=== PATIENT | male | born 1965 | race African-American/Black ===

== ENCOUNTER 2016-09-27 07:41 | Emergency (ER) | payer OTHER ==
[~2016-09-27 07:41] MED LIST: ACYC1CAP16 PO; METH750T2 PO; OMEP20TA39 PO; SERT-129 PO; TRAZ100 PO
[2016-09-27 07:43] VITALS: BP 136/69; PULSE 81; RESP 14; TEMP 98.1; O2SAT 97
[2016-09-27 07:50] VITALS: BP 122/77; PULSE 68; RESP 18; O2SAT 97
--- NOTE | 2016-09-27 07:50 | PD ---
HPI Chief Complaint: abdominal pain Time Seen by Provider: 07:50 Travel History International Travel<30 days: No Contact w/Intl Traveler<30days: No Traveled to known affect area: No History of Present Illness HPI 51-year-old male came to the emergency room with history of vague abdominal pain that's been going on for past 2-3 months. [facility]. No history of vomiting or diarrhea. Patient does have some nausea and constipation. His last bowel movement was 2 days ago. He points out to the generalized abdominal area when I asked the location of the pain. He calls it a burning kind of sensation. It comes and goes. He said he is currently in discomfort. No history of blood in his urine or stool. He has been taking [id number] stool softener. He does not remember the name. Vital signs were stable. He said while he was here he also would like to tell about his toothache. It's in the right upper molar. The gum is little swollen and the tooth is chipped. He has not seen a dentist for this yet. [facility] Past Medical History Narrative Medical List of his past medical, surgical, social and family history was reviewed from the nursing note. Arthritis: Yes (BACK) Bipolar Disorder: Yes Anxiety: Yes Depression: Yes Heart Rhythm Problems: No Cardiovascular Problems: Yes High Cholesterol: Yes Congestive Heart Failure: No Diminished Hearing: No GERD: Yes Immunizations Current: Yes Past Surgical History Other Surgery: Yes (LAMINECTOMY L4/L5 1996) Social History Alcohol Use: No Tobacco Use: No Substance Use: Yes (MARIJUANA) Allergies-Medications (Allergen,Severity, Reaction): Coded Allergies: No Known Allergies (Verified , 09/27/16) Comments No known drug allergies. Reported Meds & Prescriptions Reported Meds & Active Scripts Active Protonix (Pantoprazole Sodium) 20 Mg Tab 20 Mg PO DAILY Amoxicillin 500 Mg Cap 500 Mg PO BID 10 Days Miralax Powder (Polyethylene Glycol 3350 Powder) 17 Gm Powd 17 Gm PO DAILY Mix and dissolve one measuring cap-ful (17 grams) in water or juice. Narrative Medication List of his home medications reviewed from the nursing note. Review of Systems Except as stated in HPI: all other systems reviewed are Neg Physical Exam Narrative GENERAL: Awake, alert, no obvious distress SKIN: Warm and dry. HEAD: Atraumatic. Normocephalic. EYES: Pupils equal and round. No scleral icterus. No injection or drainage. ENT: No nasal bleeding or discharge. Mucous membranes pink and moist. Dental caries #1 tooth is cracked and slightly tender to touch. No surrounding edema or abscess noticed. NECK: Trachea midline. No JVD. CARDIOVASCULAR: Regular rate and rhythm. No murmur appreciated. RESPIRATORY: No accessory muscle use. Clear to auscultation. Breath sounds equal bilaterally. GASTROINTESTINAL: Abdomen soft, non-tender, nondistended. Hepatic and splenic margins not palpable. MUSCULOSKELETAL: No obvious deformities. No clubbing. No cyanosis. No edema. NEUROLOGICAL: Awake and alert. No obvious cranial nerve deficits. Motor grossly within normal limits. Normal speech. PSYCHIATRIC: Appropriate mood and affect; insight and judgment normal. Data Data Last Documented VS Orders Complete Blood Count With Diff (09/27/16 07:53) Comprehensive Metabolic Panel (09/27/16 07:53) Urinalysis - C+S If Indicated (09/27/16 07:53) Ct Abd/Pel W/O Iv Contrast (09/27/16 07:53) Iv Access Insert/Monitor (09/27/16 07:53) Ecg Monitoring (09/27/16 07:53) Oximetry (09/27/16 07:53) Sodium Chloride 0.9% Flush (Ns Flush) (09/27/16 08:00) Ketorolac Inj (Toradol Inj) (09/27/16 08:00) Pantoprazole Inj (Protonix Inj) (09/27/16 08:30) Lipase (09/27/16 08:18) Labs MDM Medical Decision Making Medical Screen Exam Complete: Yes Emergency Medical Condition: Yes Medical Record Reviewed: Yes Differential Diagnosis Constipation, diverticulitis, colitis, cracked tooth Narrative Course 8:17 AM patient was given IV Toradol for pain. I've ordered blood test and CAT scan of his abdomen and pelvis. Awaiting for the test results. I will also give him IV Protonix. 9:20 AM blood test and CAT scan reports came back to be within normal limit. And does have some renal insufficiency. I will discharge him home at this point. Procedures EKG Prior to Arrival: No Diagnosis Primary Impression: Constipation Qualified Code: K59.00 - Constipation, unspecified constipation type Additional Impressions: Abdominal pain Qualified Code: R10.84 - Generalized abdominal pain Toothache Renal insufficiency Referrals: Primary Care Physician 3 days Additional Instructions: Please follow-up with your primary care as well as a dentist. Take medication as per the prescription direction. Drink lots of fluid to keep herself hydrated. Drink food with high fiber content. Med/Other Pt SpecificInfo: Prescription(s) given Scripts Pantoprazole (Protonix)20 Mg Tab20 Mg PO DAILY #30 TAB Ref 0 Prov:Marge Mancia MD 09/27/16 Amoxicillin 500 Mg Lty064 Mg PO BID 10 Days Ref 0 Prov:Marge Mancia MD 09/27/16 Polyethylene Glycol 3350 Powder (Miralax Powder)17 Gm Powd17 Gm PO DAILY #1 BOTTLE Ref 0 Mix and dissolve one measuring cap-ful (17 grams) in water or juice. Prov:Marge Mancia MD 09/27/16 Disposition: 01 DISCHARGE HOME Condition: Stable Marge Mancia MD Sep 27, 2016 07:50 Eosinophils # (Auto) 0.0 TH/MM3 Basophils # (Auto) 0.0 TH/MM3 CBC Comment DIFF FINAL Differential Comment Sodium Level 138 MEQ/L Potassium Level 3.8 MEQ/L Chloride Level 105 MEQ/L Carbon Dioxide Level 26.5 MEQ/L Anion Gap 7 MEQ/L Blood Urea Nitrogen 21 MG/DL Creatinine 1.31 MG/DL Estimat Glomerular Filtration 69 ML/MIN Rate Random Glucose 95 MG/DL Calcium Level 8.3 MG/DL Total Bilirubin 0.4 MG/DL Aspartate Amino Transf 37 U/L (AST/SGOT) Alanine Aminotransferase 31 U/L (ALT/SGPT) Alkaline Phosphatase 63 U/L Total Protein 6.7 GM/DL Albumin 3.4 GM/DL Lipase 152 U/L Urine Color YELLOW Urine Turbidity CLEAR Urine pH 6.0 Urine Specific [place] 1.021 Urine Protein NEG mg/dL Urine Glucose (UA) NEG mg/dL Urine Ketones NEG mg/dL Urine Occult Blood NEG Urine Nitrite NEG Urine Bilirubin NEG Urine Urobilinogen 2.0 MG/DL Urine Leukocyte Esterase NEG Urine Mucus FEW /lpf Microscopic Urinalysis Comment CULT NOT INDICATED MDM Medical Decision Making Medical Screen Exam Complete: Yes Emergency Medical Condition: Yes Medical Record Reviewed: Yes Differential Diagnosis Constipation, diverticulitis, colitis, cracked tooth Narrative Course 8:17 AM patient was given IV Toradol for pain. I've ordered blood test and CAT scan of his abdomen and pelvis. Awaiting for the test results. I will also give him IV Protonix. 9:20 AM blood test and CAT scan reports came back to be within normal limit. And does have some renal insufficiency. I will discharge him home at this point. Procedures EKG Prior to Arrival: No Diagnosis Primary Impression: Constipation Qualified Code: K59.00 - Constipation, unspecified constipation type Additional Impressions: Abdominal pain Qualified Code: R10.84 - Generalized abdominal pain Toothache Renal insufficiency Referrals: Primary Care Physician 3 days Additional Instructions: Please follow-up with your primary care as well as a dentist. Take medication as per the prescription direction. Drink lots of fluid to keep herself hydrated. Drink food with high fiber content. Med/Other Pt SpecificInfo: Prescription(s) given Scripts Pantoprazole (Protonix)20 Mg Tab20 Mg PO DAILY #30 TAB Ref 0 Prov:Marge Mancia MD 09/27/16 Amoxicillin 500 Mg Jpv228 Mg PO BID 10 Days Ref 0 Prov:Marge Mancia MD 09/27/16 Polyethylene Glycol 3350 Powder (Miralax Powder)17 Gm Powd17 Gm PO DAILY #1 BOTTLE Ref 0 Mix and dissolve one measuring cap-ful (17 grams) in water or juice. Prov:Marge Mancia MD 09/27/16 Disposition: DISCHARGE HOME Condition: Stable Marge Mancia MD Sep 27, 2016 07:50
[2016-09-27] MEDS ORDERED: KETOROLAC TROMETHAMINE 30 MG/ML (IVP) VIAL IVP ONE (08:00)
[2016-09-27] MEDS ORDERED: SODIUM CHLORIDE 0.9% FLUSH 10 ML FLUSH IV FLUSH PRN (08:00)
[2016-09-27 08:05] VITALS: BP 122/77; PULSE 68; RESP 18; O2SAT 97
[2016-09-27] MEDS ORDERED: PANTOPRAZOLE SODIUM 40 MG VIAL IV PUSH ONE (08:30)
[2016-09-27 08:32] LABS: AUTOMATED NEUTROPHIL # 4.4 TH/MM3 (1.8-7.7); BASOPHIL % 0.4 % (0.0-2.0); EOSINOPHIL % 0.6 % (0.0-4.0); HEMATOCRIT 39.6 % (39.0-51.0); HEMO FLAGS DIFF FINAL; LYMPH % 28.9 % (9.0-44.0); LYMPHOCYTE # 2.1 TH/MM3 (1.0-4.8); MEAN CORPUSCULAR HEMOGLOBIN 28.3 PG (27.0-34.0); MEAN CORPUSCULAR HGB CONC 33.3 % (32.0-36.0); MONO % 8.7 % (0.0-8.0); NEUT % 61.4 % (16.0-70.0); PLATELET COUNT 197 TH/MM3 (150-450); RED BLOOD COUNT 4.66 MIL/MM3 (4.50-5.90); RED CELL DISTRIBUTION WIDTH 14.6 % (11.6-17.2); WHITE BLOOD COUNT 7.2 TH/MM3 (4.0-11.0)
--- NOTE | 2016-09-27 08:47 | RADRPT ---
EXAM DATE/TIME: 09/27/2016 08:03 [facility] COMPARISON: CT ABDOMEN & PELVIS W CONTRAST, November 16, 2014, 14:12. INDICATIONS : Lower left abdomenpain. ORAL CONTRAST: No oral contrast ingested. RADIATION DOSE: 9.96 CTDIvol (mGy) MEDICAL HISTORY : Gastroesophageal reflux disease. SURGICAL HISTORY : None. ENCOUNTER: Initial ACUITY: 2 days PAIN SCALE: 5/10 LOCATION: Left Abdomen TECHNIQUE: Volumetric scanning of the abdomen and pelvis was performed. Using automated exposure control and ad justment of the mA and/or kV according to patient size, radiation dose was kept as low as reasonably achievable to obtain optimal diagnostic quality images. FINDINGS: LOWER LUNGS: The visualized lower lungs are clear. LIVER: Homogeneous density without lesion. There is no dilation of the biliary tree. No calcified gallston es. SPLEEN: Normal size without lesion. PANCREAS: Within normal limits. KIDNEYS: Normal in size and shape. There is no mass, stone, or hydronephrosis. ADRENAL GLANDS: Within normal limits. VASCULAR: There is no aortic aneurysm. BOWEL/MESENTERY: The stomach, small bowel, and colon demonstrate no acute abnormality. There is no free intraperitone al air or fluid. ABDOMINAL WALL: Within normal limits. RETROPERITONEUM: There is no lymphadenopathy. BLADDER: No wall thickening or mass. REPRODUCTIVE: Within normal limits. INGUINAL: There is no lymphadenopathy or hernia. MUSCULOSKELETAL: There are mild degenerative changes throughout the spine. CONCLUSION: 1. No definite abnormality to explain the patient's left lower abdominal pain is identified. Alexx Espinoza MD on September 27, 2016 at 8:29 Board Certified Radiologist. This report was verified electronically.
[2016-09-27 09:10] LABS: ALKALINE PHOSPHATASE 63 U/L (45-117); ALT (GPT) 31 U/L (12-78); ANION GAP 7 MEQ/L (5-15); AST (GOT) 37 U/L (15-37); BICARBONATE 26.5 MEQ/L (21.0-32.0); BLOOD UREA NITROGEN 21 MG/DL (7-18); CHLORIDE 105 MEQ/L (98-107); GLOMERULAR FILTRATION RATE 69 ML/MIN (>89); SODIUM (NA) 138 MEQ/L (136-145); TOTAL BILIRUBIN ADULT 0.4 MG/DL (0.2-1.0)
[2016-09-27 09:12] LABS: BLOOD, URINE NEG (NEG); COMMENT (UR) CULT NOT INDICATED; CULTURE IF INDICATED CULT NOT INDICATED; GLUCOSE,URINE NEG (NEG); KETONE, URINE NEG (NEG); MUCUS URINE FEW /lpf (OCC); NITRITE,URINE NEG (NEG); URINE COLOR YELLOW (YELLW/STRAW)
[2016-09-27 09:17] LABS: POTASSIUM 3.8 MEQ/L (3.5-5.1)
[2016-09-27] MEDS ORDERED: MIRA33504 PO (09:21)
[2016-09-27] MEDS ORDERED: AMOX500C PO (09:21)
[2016-09-27] MEDS ORDERED: PANT20 PO (09:22)
[2016-09-27 09:30] VITALS: BP 122/73
== END 2016-09-27 09:48 | disposition home or self-care (01) ==
LOC: NEPE 07:41
DX: K59.00 Constipation, unspecified (principal); R10.84 Generalized abdominal pain; K08.89 Other specified disorders of teeth and supporting structures; E78.00 Pure hypercholesterolemia, unspecified
CPT/HCPCS: 74176; 80053; 81001; 83690; 85025; 96374; 96375; 99284; C9113; J1885

== ENCOUNTER 2017-04-30 09:25 | Observation (INO) | payer OTHER ==
[2017-04-30] VITALS (8 sets, daily range): BP systolic 117–149; BP diastolic 69–85; PULSE 46–89; RESP 15–18; TEMP 97.3–98.9; O2SAT 96–100
[~2017-04-30] VITALS: Ht 180.3 cm; Wt 106.0 kg
[~2017-04-30 09:25] MED LIST changes: -ACYC1CAP16 PO; +AMOX500C PO; -METH750T2 PO; +MIRA33504 PO; -OMEP20TA39 PO; +PANT20 PO; -SERT-129 PO; -TRAZ100 PO
[2017-04-30] MEDS ORDERED: SODIUM CHLOR 0.9% 1000 ML INJ 1,000 ML IV SCH (09:42)
[2017-04-30] MEDS ORDERED: SODIUM CHLORIDE 0.9% FLUSH 10 ML FLUSH IV FLUSH PRN ×2 (09:45→12:00)
[2017-04-30] MEDS ORDERED: ONDANSETRON HCL 4 MG/2 ML VIAL IVP ONE (09:45)
[2017-04-30] MEDS ORDERED: MORPHINE SULFATE 4 MG/ML INJ IV PUSH ONE (09:45)
[2017-04-30] MEDS ORDERED: FAMOTIDINE 20 MG/2 ML VIAL IV PUSH ONE (09:45)
--- NOTE | 2017-04-30 09:54 | PD ---
HPI Chief Complaint: Abdominal Pain Time Seen by Provider: 09:33 Travel History International Travel<30 days: No Contact w/Intl Traveler<30days: No Traveled to known affect area: No History of Present Illness HPI The patient is a 52-year-old [place] male who presents emergency department for a one-week history of abdominal pain. The patient complains of generalized abdominal pain located in epigastrium and right upper quadrant that radiates to the entire abdomen. He does note mild nausea but denies any vomiting, diarrhea, or constipation. The patient does note decreased appetite over the last week. The patient denies any previous abdominal surgeries and denies any history pancreatitis or biliary colic. He denies any chronic alcohol abuse. The patient states his pain started after he returned home from [place]. The patient called [facility] earlier today who referred him to the emergency department. He denies any dysuria, frequency, urgency, or hematuria. Symptoms are moderate without any alleviating or exacerbating factors. PFSH Past Medical History Arthritis: Yes (BACK) Bipolar Disorder: Yes Anxiety: Yes Depression: Yes Heart Rhythm Problems: No Cardiovascular Problems: Yes High Cholesterol: Yes Congestive Heart Failure: No Diminished Hearing: No GERD: Yes Heparin Induced Thrombocytopen: No Hypertension: No Immunizations Current: Yes Past Surgical History Other Surgery: Yes (LAMINECTOMY L4/L5 1996) Social History Alcohol Use: No Tobacco Use: No Substance Use: Yes (MARIJUANA) Allergies-Medications (Allergen,Severity, Reaction): Coded Allergies: No Known Allergies (Verified , 04/30/17) Reported Meds & Prescriptions Reported Meds & Active Scripts Active Reported Acyclovir 400 Mg Tab 400 Mg PO BID Protonix (Pantoprazole Sodium) 20 Mg Tab 20 Mg PO DAILY Ziprasidone 20 Mg Cap 20 Mg PO BID Trazodone (Trazodone HCl) 50 Mg Tab 50 Mg PO HS Sertraline (Sertraline HCl) 25 Mg Tab 25 Mg PO DAILY Review of Systems Except as stated in HPI: all other systems reviewed are Neg General / Constitutional: No: Fever Cardiovascular: Positive: Chest Pain or Discomfort (epigastric pain and lower chest pain radiating from the abdomen) Respiratory: No: Shortness of Breath Gastrointestinal: Positive: Nausea, Abdominal Pain, Loss of Appetite, No: Vomiting, Diarrhea Genitourinary: No: Urgency, Frequency, Dysuria, Hematuria Physical Exam Narrative GENERAL: Awake, alert, pleasant 52-year-old male who appears his stated age and is in no acute respiratory distress. SKIN: Focused skin assessment warm/dry. HEAD: Atraumatic. Normocephalic. EYES: Pupils equal and round. No scleral icterus. No injection or drainage. ENT: No nasal bleeding or discharge. Mucous membranes pink and moist. NECK: Trachea midline. No JVD. CARDIOVASCULAR: Regular rate and rhythm. No murmur appreciated. RESPIRATORY: No accessory muscle use. Clear to auscultation. Breath sounds equal bilaterally. GASTROINTESTINAL: Abdomen soft, mild diffuse tenderness but no rebound tenderness, guarding, rigidity. Negative Trammell's. Negative McBurney's. Back: No CVA tenderness. MUSCULOSKELETAL: No obvious deformities. No clubbing. No cyanosis. No edema. NEUROLOGICAL: Awake and alert. No obvious cranial nerve deficits. Motor grossly within normal limits. Normal speech. PSYCHIATRIC: Appropriate mood and affect; insight and judgment normal. Data Data Last Documented VS Vital Signs Date Time Temp Pulse Resp B/P (MAP) Pulse Ox O2 Delivery O2 Flow Rate FiO2 04/30/17 09:59 98.3 18 100 Room Air 04/30/17 09:57 53 Orders Orders Complete Blood Count With Diff (04/30/17 09:42) Comprehensive Metabolic Panel (04/30/17 09:42) Lipase (04/30/17 09:42) Lactic Acid (04/30/17 09:42) Urinalysis - C+S If Indicated (04/30/17 09:42) Ct Abd/Pel W/O Iv Contrast (04/30/17 09:42) Iv Access Insert/Monitor (04/30/17 09:42) Ecg Monitoring (04/30/17 09:42) Oximetry (04/30/17 09:42) Morphine Inj (Morphine Inj) (04/30/17 09:45) Ondansetron Inj (Zofran Inj) (04/30/17 09:45) Sodium Chlor 0.9% 1000 Ml Inj (Ns 1000 M (04/30/17 09:42) Sodium Chloride 0.9% Flush (Ns Flush) (04/30/17 09:45) Electrocardiogram (04/30/17 09:42) Famotidine Inj (Pepcid Inj) (04/30/17 09:45) Admit Order (Ed Use Only) (04/30/17 ) Vital Signs (Adult) Q4H (04/30/17 11:52) Diet Npo (04/30/17 Lunch) Activity Oob With Assistance (04/30/17 11:52) Labs Laboratory Tests Test 04/30/17 09:55 04/30/17 10:09 White Blood Count 7.5 TH/MM3 Red Blood Count 4.89 MIL/MM3 Hemoglobin 14.1 GM/DL Hematocrit 42.1 % Mean Corpuscular Volume 86.2 FL Mean Corpuscular Hemoglobin 28.8 PG Mean Corpuscular Hemoglobin Concent 33.4 % Red Cell Distribution Width 14.4 % Platelet Count 201 TH/MM3 Mean Platelet Volume 8.7 FL Neutrophils (%) (Auto) 75.4 % Lymphocytes (%) (Auto) 17.0 % Monocytes (%) (Auto) 7.0 % Eosinophils (%) (Auto) 0.3 % Basophils (%) (Auto) 0.3 % Neutrophils # (Auto) 5.6 TH/MM3 Lymphocytes # (Auto) 1.3 TH/MM3 Monocytes # (Auto) 0.5 TH/MM3 Eosinophils # (Auto) 0.0 TH/MM3 Basophils # (Auto) 0.0 TH/MM3 CBC Comment DIFF FINAL Differential Comment Blood Urea Nitrogen 14 MG/DL Creatinine 1.08 MG/DL Random Glucose 116 MG/DL Total Protein 7.1 GM/DL Albumin 3.4 GM/DL Calcium Level 8.9 MG/DL Alkaline Phosphatase 60 U/L Aspartate Amino Transf (AST/SGOT) 29 U/L Alanine Aminotransferase (ALT/SGPT) 23 U/L Total Bilirubin 0.4 MG/DL Sodium Level 139 MEQ/L Potassium Level 4.4 MEQ/L Chloride Level 107 MEQ/L Carbon Dioxide Level 23.1 MEQ/L Anion Gap 9 MEQ/L Estimat Glomerular Filtration Rate 86 ML/MIN Lactic Acid Level 1.1 mmol/L Lipase 88 U/L Urine Color YELLOW Urine Turbidity CLEAR Urine pH 6.0 Urine Specific [place] 1.015 Urine Protein NEG mg/dL Urine Glucose (UA) NEG mg/dL Urine Ketones NEG mg/dL Urine Occult Blood NEG Urine Nitrite NEG Urine Bilirubin NEG Urine Urobilinogen LESS THAN 2.0 MG/DL Urine Leukocyte Esterase NEG Urine RBC LESS THAN 1 /hpf Urine WBC LESS THAN 1 /hpf Microscopic Urinalysis Comment CULT NOT INDICATED MDM Medical Decision Making Medical Screen Exam Complete: Yes Emergency Medical Condition: Yes Medical Record Reviewed: Yes Interpretation(s) EKG reveals sinus bradycardia with a heart rate of 49. No ischemic changes noted. Laboratory Tests Test 04/30/17 09:55 04/30/17 10:09 White Blood Count 7.5 TH/MM3 Red Blood Count 4.89 MIL/MM3 Hemoglobin 14.1 GM/DL Hematocrit 42.1 % Mean Corpuscular Volume 86.2 FL Mean Corpuscular Hemoglobin 28.8 PG Mean Corpuscular Hemoglobin Concent 33.4 % Red Cell Distribution Width 14.4 % Platelet Count 201 TH/MM3 Mean Platelet Volume 8.7 FL Neutrophils (%) (Auto) 75.4 % Lymphocytes (%) (Auto) 17.0 % Monocytes (%) (Auto) 7.0 % Eosinophils (%) (Auto) 0.3 % Basophils (%) (Auto) 0.3 % Neutrophils # (Auto) 5.6 TH/MM3 Lymphocytes # (Auto) 1.3 TH/MM3 Monocytes # (Auto) 0.5 TH/MM3 Eosinophils # (Auto) 0.0 TH/MM3 Basophils # (Auto) 0.0 TH/MM3 CBC Comment DIFF FINAL Differential Comment Blood Urea Nitrogen 14 MG/DL Creatinine 1.08 MG/DL Random Glucose 116 MG/DL Total Protein 7.1 GM/DL Albumin 3.4 GM/DL Calcium Level 8.9 MG/DL Alkaline Phosphatase 60 U/L Aspartate Amino Transf (AST/SGOT) 29 U/L Alanine Aminotransferase (ALT/SGPT) 23 U/L Total Bilirubin 0.4 MG/DL Sodium Level 139 MEQ/L Potassium Level 4.4 MEQ/L Chloride Level 107 MEQ/L Carbon Dioxide Level 23.1 MEQ/L Anion Gap 9 MEQ/L Estimat Glomerular Filtration Rate 86 ML/MIN Lactic Acid Level 1.1 mmol/L Lipase 88 U/L Urine Color YELLOW Urine Turbidity CLEAR Urine pH 6.0 Urine Specific [place] 1.015 Urine Protein NEG mg/dL Urine Glucose (UA) NEG mg/dL Urine Ketones NEG mg/dL Urine Occult Blood NEG Urine Nitrite NEG Urine Bilirubin NEG Urine Urobilinogen LESS THAN 2.0 MG/DL Urine Leukocyte Esterase NEG Urine RBC LESS THAN 1 /hpf Urine WBC LESS THAN 1 /hpf Microscopic Urinalysis Comment CULT NOT INDICATED Differential Diagnosis Differential diagnosis includes cholecystitis, biliary colic, pancreatitis, pancreatic cancer, atypical appendicitis, nephrolithiasis, hydronephrosis, pyelonephritis, duodenitis, peptic ulcer disease. Narrative Course IV was established, labs are drawn and sent, and the patient was placed on cardiac telemetry monitoring and continuous pulse oximetry monitoring. The patient was administered morphine, Zofran, and IV fluids. EKG was ordered and interpreted. UA was sent to lab. The patient's white count and lactic acid are unremarkable. However, CT reveals an abnormal 10 cm dilation of the distal duodenum, proximal jejunum, unsure if this is related to aperistalsis versus another etiology. Patient has had abdominal pain for 7 days, with decreased appetite, may benefit from small bowel follow-through versus repeat CT with oral contrast versus endoscopy. Therefore, the patient will be 23 hour observation to the on-call medical service. Physician Communication Physician Communication I discussed the patient with Dr. Bui who agrees with 23 hour observation. Diagnosis Primary Impression: Abdominal pain Qualified Codes: R10.11 - Right upper quadrant pain Admitting Information Admitting Physician Requests: Observation Condition: Stable Sachin Valero MD Apr 30, 2017 09:54
[2017-04-30] MEDS ORDERED: PANT20 PO (09:56)
[2017-04-30] MEDS ORDERED: TRAZ50TA12 PO (09:56)
[2017-04-30] MEDS ORDERED: SERT25TA83 PO (09:56)
[2017-04-30] MEDS ORDERED: ZIPR20CA13 PO (09:56)
[2017-04-30] MEDS ORDERED: ACYC400T PO (09:56)
[2017-04-30 10:28] LABS: AUTOMATED NEUTROPHIL # 5.6 TH/MM3 (1.8-7.7); BASOPHIL % 0.3 % (0.0-2.0); EOSINOPHIL % 0.3 % (0.0-4.0); HEMATOCRIT 42.1 % (39.0-51.0); HEMO FLAGS DIFF FINAL; LYMPHOCYTE # 1.3 TH/MM3 (1.0-4.8); MEAN CELL VOLUME 86.2 FL (80.0-100.0); MEAN CORPUSCULAR HEMOGLOBIN 28.8 PG (27.0-34.0); MEAN CORPUSCULAR HGB CONC 33.4 % (32.0-36.0); NEUT % 75.4 % (16.0-70.0); PLATELET COUNT 201 TH/MM3 (150-450); RED BLOOD COUNT 4.89 MIL/MM3 (4.50-5.90); RED CELL DISTRIBUTION WIDTH 14.4 % (11.6-17.2); WHITE BLOOD COUNT 7.5 TH/MM3 (4.0-11.0)
[2017-04-30 10:48] LABS: BLOOD, URINE NEG (NEG); GLUCOSE,URINE NEG (NEG); KETONE, URINE NEG (NEG); NITRITE,URINE NEG (NEG); URINE COLOR YELLOW (YELLW/STRAW)
[2017-04-30 10:49] LABS: ALT (GPT) 23 U/L (12-78)
[2017-04-30 10:50] LABS: COMMENT (UR) CULT NOT INDICATED; CULTURE IF INDICATED CULT NOT INDICATED
[2017-04-30 10:52] LABS: ALKALINE PHOSPHATASE 60 U/L (45-117); ANION GAP 9 MEQ/L (5-15); AST (GOT) 29 U/L (15-37); BICARBONATE 23.1 MEQ/L (21.0-32.0); BLOOD UREA NITROGEN 14 MG/DL (7-18); CHLORIDE 107 MEQ/L (98-107); GLOMERULAR FILTRATION RATE 86 ML/MIN (>89); SODIUM (NA) 139 MEQ/L (136-145); TOTAL BILIRUBIN ADULT 0.4 MG/DL (0.2-1.0)
[2017-04-30 10:58] LABS: POTASSIUM 4.4 MEQ/L (3.5-5.1)
--- NOTE | 2017-04-30 11:02 | RADRPT ---
EXAM DATE/TIME: 04/30/2017 10:30 [facility] COMPARISON: CT ABDOMEN & PELVIS W CONTRAST, November 16, 2014, 14:12. CT ABDOMEN & PELVIS W/O CONTRAST, September 27 7, 8:03. INDICATIONS : Right sided abdominal pain for seven days. ORAL CONTRAST: No oral contrast ingested. RADIATION DOSE: 13.54 CTDIvol (mGy) MEDICAL HISTORY : Cardiovascular disease. SURGICAL HISTORY : None. ENCOUNTER: Initial ACUITY: 1 day PAIN SCALE: 8/10 LOCATION: Right TECHNIQUE: Volumetric scanning of the abdomen and pelvis was performed. Using automated exposure control and ad justment of the mA and/or kV according to patient size, radiation dose was kept as low as reasonably achievable to obtain optimal diagnostic quality images. DICOM format image data is available electro nically for review and comparison. FINDINGS: LOWER LUNGS: Minimal atelectasis in the anterior lung base. LIVER: Homogeneous density without lesion. There is no dilation of the biliary tree. No calcified gallston es. SPLEEN: Normal size without lesion. PANCREAS: Within normal limits. KIDNEYS: Normal in size and shape. There is no mass, stone, or hydronephrosis. ADRENAL GLANDS: Within normal limits. VASCULAR: There is no aortic aneurysm. BOWEL/MESENTERY: Appendix is visualized and normal in appearance. There is an air filled slightly prominent 10 cm loop of very proximal jejunum at the junction of the duodenum. Bowel otherwise appears unremarkable witho ut evidence for free air or pneumatosis. No significant free fluid or drainable fluid collection. ABDOMINAL WALL: Within normal limits. RETROPERITONEUM: There is no lymphadenopathy. BLADDER: No wall thickening or mass. REPRODUCTIVE: Within normal limits. INGUINAL: There is no lymphadenopathy or hernia. MUSCULOSKELETAL: Degenerative spondylosis of the lower lumbar spine most prominent at L4-5 and L5-S1. CONCLUSION: 1. Focal 10 cm loop of slightly prominent air-filled proximal jejunum at the junction of the duodenum . This finding is nonspecific and likely reflects transient aperistalsis in this segment of bowel. En teritis or developing ileus are felt to be unlikely although cannot be entirely excluded. 2. Normal appendix. Austin Victoria MD on April 30, 2017 at 10:52 Board Certified Radiologist. This report was verified electronically.
[2017-04-30] MEDS ORDERED: DIATRIZOATE MEGLUM/DIATRIZOATE SOD 120 ML BTL (for RAD DIAG) PO ONE (11:55)
[2017-04-30] MEDS ORDERED: ONDANSETRON HCL 4 MG/2 ML VIAL IVP PRN (12:00)
[2017-04-30] MEDS ORDERED: NALOXONE HCL 0.4 MG/ML AMP IV PUSH PRN (12:00)
[2017-04-30] MEDS: SODIUM CHLOR 0.9% 1000 ML INJ 1,000 ML IV SCH ×2 (12:26→23:29)
--- NOTE | 2017-04-30 12:31 | HHI.HP ---
[facility] Admission Diagnosis abdominal pain NOS Diagnoses: Chief Complaint: Nausea, abdominal pain Travel History International Travel<30 Days: No Contact w/Intl Traveler <30 Da: No Traveled to Known Affected Are: No History of Present Illness 52-year-old male with a history of depression, bipolar disorder, GERD who presents with a one-week history of constant sharp epigastric abdominal pain, together with sharp constant right groin pain. He also reports a three-day history of left lower chest tightness, which is not changed with exertion. He also reports nausea for the past 3 days without vomiting. Reports decreased appetite over the past few days. He does report chills over the past few days, however no measured fevers. Denies any diarrhea. He does report chronic constipation, although says he is not constipated at this time. Review of Systems Except as stated in HPI: all other systems reviewed are Neg Past Family Social History Past Medical History Depression Bipolar GERD Herpes Past Surgical History History of back surgery in the 1980s. Reported Medications Reported Meds & Active Scripts Active Reported Acyclovir 400 Mg Tab 400 Mg PO BID Protonix (Pantoprazole Sodium) 20 Mg Tab 20 Mg PO DAILY Ziprasidone 20 Mg Cap 20 Mg PO BID Trazodone (Trazodone HCl) 50 Mg Tab 50 Mg PO HS Sertraline (Sertraline HCl) 25 Mg Tab 25 Mg PO DAILY Allergies: Coded Allergies: No Known Allergies (Verified , 04/30/17) Family History Father suddenly reportedly from heart attack in his 30s. Mother reportedly healthy. Social History Nonsmoker. Nondrinker. Reports twice weekly marijuana use. Physical Exam Vital Signs Vital Signs Date Time Temp Pulse Resp B/P (MAP) Pulse Ox O2 Delivery O2 Flow Rate FiO2 04/30/17 09:59 98.3 18 100 Room Air 04/30/17 09:57 53 18 136/78 (97) 99 Room Air 04/30/17 09:27 97.8 89 15 139/80 (99) 96 Physical Exam GENERAL: This is a well-nourished, well-developed patient, in no apparent distress. Alert and oriented 3. SKIN: No rashes, ecchymoses or lesions. Cool and dry. HEAD: Atraumatic. Normocephalic. No temporal or scalp tenderness. EYES: Pupils equal round and reactive. Extraocular motions intact. No scleral icterus. No injection or drainage. ENT: Nose without bleeding, purulent drainage or septal hematoma. Throat without erythema, tonsillar hypertrophy or exudate. Uvula midline. Airway patent. NECK: Trachea midline. No JVD or lymphadenopathy. Supple, nontender, no meningeal signs. CARDIOVASCULAR: Regular rate and rhythm without murmurs, gallops, or rubs. RESPIRATORY: Clear to auscultation. Breath sounds equal bilaterally. No wheezes , rales, or rhonchi. GASTROINTESTINAL: Abdomen with mild tenderness to moderate palpation over the epigastrium.. No hepato-splenomegaly, or palpable masses. No guarding. No rebound. No right lower quadrant tenderness. Hypoactive bowel sounds. MUSCULOSKELETAL: Extremities without clubbing, cyanosis, or edema. No joint tenderness, effusion, or edema noted. No calf tenderness. Negative Homans sign bilaterally. NEUROLOGICAL: Awake and alert. Cranial nerves II through XII intact. Motor and sensory grossly within normal limits. Five out of 5 muscle strength in all muscle groups. Normal speech. Laboratory Laboratory Tests Test 04/30/17 09:55 04/30/17 10:09 White Blood Count 7.5 Red Blood Count 4.89 Hemoglobin 14.1 Hematocrit 42.1 Mean Corpuscular Volume 86.2 Mean Corpuscular Hemoglobin 28.8 Mean Corpuscular Hemoglobin Concent 33.4 Red Cell Distribution Width 14.4 Platelet Count 201 Mean Platelet Volume 8.7 Neutrophils (%) (Auto) 75.4 Lymphocytes (%) (Auto) 17.0 Monocytes (%) (Auto) 7.0 Eosinophils (%) (Auto) 0.3 Basophils (%) (Auto) 0.3 Neutrophils # (Auto) 5.6 Lymphocytes # (Auto) 1.3 Monocytes # (Auto) 0.5 Eosinophils # (Auto) 0.0 Basophils # (Auto) 0.0 CBC Comment DIFF FINAL Differential Comment Blood Urea Nitrogen 14 Creatinine 1.08 Random Glucose 116 Total Protein 7.1 Albumin 3.4 Calcium Level 8.9 Alkaline Phosphatase 60 Aspartate Amino Transf (AST/SGOT) 29 Alanine Aminotransferase (ALT/SGPT) 23 Total Bilirubin 0.4 Sodium Level 139 Potassium Level 4.4 Chloride Level 107 Carbon Dioxide Level 23.1 Anion Gap 9 Estimat Glomerular Filtration Rate 86 Lactic Acid Level 1.1 Lipase 88 Urine Color YELLOW Urine Turbidity CLEAR Urine pH 6.0 Urine Specific [place] 1.015 Urine Protein NEG Urine Glucose (UA) NEG Urine Ketones NEG Urine Occult Blood NEG Urine Nitrite NEG Urine Bilirubin NEG Urine Urobilinogen LESS THAN 2.0 Urine Leukocyte Esterase NEG Urine RBC LESS THAN 1 Urine WBC LESS THAN 1 Microscopic Urinalysis Comment CULT NOT INDICATED Result Diagram: 04/30/1795404/30/17954 Imaging Last Impressions Abdomen/Pelvis CT 04/30/17941 Signed Impressions: Service Date/Time: Sunday, April 30, 2017 10:30 - CONCLUSION: 1. Focal 10 cm loop of slightly prominent air-filled proximal jejunum at the junction of the duodenum. This finding is nonspecific and likely reflects transient aperistalsis in this segment of bowel. Enteritis or developing ileus are felt to be unlikely although cannot be entirely excluded. 2. Normal appendix. MD Ronin Sears VTE Risk Assessment Caprini VTE Risk Assessment: No/Low Risk (score <= 1) Caprini Risk Assessment Model Point Value = 1 Point Value = 2 Point Value = 3 Point Value = 5 Age 41-60 Minor surgery BMI > 25 kg/m2 Swollen legs Varicose veins or History of unexplained or recurrent spontaneous Oral contraceptives or hormone replacement Sepsis (< 1 month) Serious lung disease, including pneumonia (< 1 month) Abnormal pulmonary function Acute myocardial infarction Congestive heart failure (< 1 month) History of inflammatory bowel disease Medical patient at bed rest Age 61-74 Arthroscopic surgery Major open surgery (> 45 min) Laparoscopic surgery (> 45 min) Malignancy Confined to bed (> 72 hours) Immobilizing plaster cast Central venous access Age >= 75 History of VTE Family history of VTE Factor V Leiden Prothrombin [id number] Lupus anticoagulant Anticardiolipin antibodies Elevated serum homocysteine Heparin-induced thrombocytopenia Other congenital or acquired thrombophilia Stroke (< 1 month) Elective arthroplasty Hip, pelvis, or leg fracture Acute spinal cord injury (< 1 month) Prophylaxis Regimen Total Risk Factor Score Risk Level Prophylaxis Regimen 0-1 Low Early ambulation 2 Moderate Order ONE of the following: *Sequential Compression Device (SCD) *Heparin 5000 units SQ BID 3-4 Higher Order ONE of the following medications: *Heparin 5000 units SQ TID *Enoxaparin/Lovenox 40 mg SQ daily (WT < 150 kg, CrCl > 30 mL/min) *Enoxaparin/Lovenox 30 mg SQ daily (WT < 150 kg, CrCl > 10-29 mL/min) *Enoxaparin/Lovenox 30 mg SQ BID (WT < 150 kg, CrCl > 30 mL/min) AND/OR *Sequential Compression Device (SCD) 5 or more Highest Order ONE of the following medications: *Heparin 5000 units SQ TID (Preferred with Epidurals) *Enoxaparin/Lovenox 40 mg SQ daily (WT < 150 kg, CrCl > 30 mL/min) *Enoxaparin/Lovenox 30 mg SQ daily (WT < 150 kg, CrCl > 10-29 mL/min) *Enoxaparin/Lovenox 30 mg SQ BID (WT < 150 kg, CrCl > 30 mL/min) AND *Sequential Compression Device (SCD) Assessment and Plan Assessment and Plan //Nausea. Possible small bowel obstruction on CT abdomen. Personally visualized CT abdomen with what appears to be a peristalsis of the duodenum. -Renal function, LFTs appear acceptable. Lactate 1.1. -Urine drug screen pending. Nausea could be secondary to marijuana. Patient nothing by mouth. Start IV fluids. Consult gastroenterology. //Left-sided chest pressure 3 day history of this. This is likely referred from abdominal pain. -Patient had low risk myocardial perfusion scan in September 2015. Troponin 1, EKG ordered. Given time course, if troponin negative, this is unlikely cardiac in nature. //Right sided groin pain. -No indication of hernia. Possible hip pain. Normal appendix on CT. No gee right lower quadrant tenderness to palpation. //Depression //Bipolar. Continue home medications. //Marijuana use. Cessation counseling provided. //Prophylaxis. SCDs. Discussed Condition With Patient, brother at bedside, ER physician. Archie Bui MD Apr 30, 2017 12:31
--- NOTE | 2017-04-30 14:46 | PD.CONS ---
HPI History of Present Illness This is a 52 year old male with hx GERD, bipolar disorder who presented with abdominal pain that started 1 week ago. THe pain is in the epigastric area and lower quadrants as well, worsening. THe pains are sharp. No aggravating or relieving factors. No diarrhea, nausea or vomiting, blood in stool. He admits burping more than usual the last few days. Admits chills and "sweats." He takes pantoprazole for GERD. Never had EGD. [facility] 2 years ago [facility], no abnormal findings. Had BM yesterday, he is feeling constipated. He has intermittent constipation. PFSH Past Medical History Depression Bipolar GERD Herpes Past Surgical History History of back surgery in the 1980s. Coded Allergies: No Known Allergies (Verified , 04/30/17) Family History Father suddenly reportedly from heart attack in his 30s. Mother reportedly healthy. Social History Nonsmoker. Nondrinker. Reports twice weekly marijuana use. Review of Systems Constitutional: COMPLAINS OF: Chills Eyes: DENIES: Blurred vision Ears, nose, mouth, throat: DENIES: Hearing loss Respiratory: COMPLAINS OF: Shortness of breath, DENIES: Hemoptysis Cardiovascular: COMPLAINS OF: Chest pain Gastrointestinal: COMPLAINS OF: Abdominal pain, Constipation, Nausea, Vomiting , DENIES: Black stools, Bloody stools, Diarrhea Genitourinary: DENIES: Hematuria Musculoskeletal: DENIES: Joint Swelling Integumentary: DENIES: Jaundice Neurologic: DENIES: Abnormal gait Psychiatric: DENIES: Confusion GI Exam Vitals I&O Vital Signs Date Time Temp Pulse Resp B/P (MAP) Pulse Ox O2 Delivery O2 Flow Rate FiO2 04/30/17 12:50 46 16 149/85 (106) 100 Room Air 04/30/17 12:49 18 04/30/17 09:59 98.3 18 100 Room Air 04/30/17 09:57 53 18 136/78 (97) 99 Room Air 04/30/17 09:27 97.8 89 15 139/80 (99) 96 I/O 04/29/17 04/29/17 04/29/17 04/30/17 04/30/17 04/30/17 07:00 15:00 23:00 07:00 15:00 23:00 Intake Total 1000 ml Balance 1000 ml Intake IV Total 1000 ml Imaging Last Impressions Abdomen/Pelvis CT 04/30/17 0942 Signed Impressions: Service Date/Time: Sunday, April 30, 2017 10:30 - CONCLUSION: 1. Focal 10 cm loop of slightly prominent air-filled proximal jejunum at the junction of the duodenum. This finding is nonspecific and likely reflects transient aperistalsis in this segment of bowel. Enteritis or developing ileus are felt to be unlikely although cannot be entirely excluded. 2. Normal appendix. Austin Victoria MD Laboratory Test 04/30/17 09:55 04/30/17 10:09 White Blood Count 7.5 TH/MM3 Red Blood Count 4.89 MIL/MM3 Hemoglobin 14.1 GM/DL Hematocrit 42.1 % Mean Corpuscular Volume 86.2 FL Mean Corpuscular Hemoglobin 28.8 PG Mean Corpuscular Hemoglobin Concent 33.4 % Red Cell Distribution Width 14.4 % Platelet Count 201 TH/MM3 Mean Platelet Volume 8.7 FL Neutrophils (%) (Auto) 75.4 % Lymphocytes (%) (Auto) 17.0 % Monocytes (%) (Auto) 7.0 % Eosinophils (%) (Auto) 0.3 % Basophils (%) (Auto) 0.3 % Neutrophils # (Auto) 5.6 TH/MM3 Lymphocytes # (Auto) 1.3 TH/MM3 Monocytes # (Auto) 0.5 TH/MM3 Eosinophils # (Auto) 0.0 TH/MM3 Basophils # (Auto) 0.0 TH/MM3 CBC Comment DIFF FINAL Differential Comment Blood Urea Nitrogen 14 MG/DL Creatinine 1.08 MG/DL Random Glucose 116 MG/DL Total Protein 7.1 GM/DL Albumin 3.4 GM/DL Calcium Level 8.9 MG/DL Alkaline Phosphatase 60 U/L Aspartate Amino Transf (AST/SGOT) 29 U/L Alanine Aminotransferase (ALT/SGPT) 23 U/L Total Bilirubin 0.4 MG/DL Sodium Level 139 MEQ/L Potassium Level 4.4 MEQ/L Chloride Level 107 MEQ/L Carbon Dioxide Level 23.1 MEQ/L Anion Gap 9 MEQ/L Estimat Glomerular Filtration Rate 86 ML/MIN Lactic Acid Level 1.1 mmol/L Lipase 88 U/L Urine Color YELLOW Urine Turbidity CLEAR Urine pH 6.0 Urine Specific [place] 1.015 Urine Protein NEG mg/dL Urine Glucose (UA) NEG mg/dL Urine Ketones NEG mg/dL Urine Occult Blood NEG Urine Nitrite NEG Urine Bilirubin NEG Urine Urobilinogen LESS THAN 2.0 MG/DL Urine Leukocyte Esterase NEG Urine RBC LESS THAN 1 /hpf Urine WBC LESS THAN 1 /hpf Microscopic Urinalysis Comment CULT NOT INDICATED Urine Opiates Screen NEG Urine Barbiturates Screen NEG Urine Amphetamines Screen NEG Urine Benzodiazepines Screen NEG Urine Cocaine Screen NEG Urine Cannabinoids Screen POS Physical Examination HEENT: PERRL; normocephalic; atraumatic; no jaundice. CHEST: CTA CARDIAC: RRR ABDOMEN: Soft, nondistended, diffuse TTP; no hepatosplenomegaly; bowel sounds are present in all four quadrants. EXTREMITIES: No clubbing, cyanosis, or edema. SKIN: Normal; no rash; no jaundice. PATIENT ACCOUNTING REPRESENTATIVE: No focal deficits; alert and oriented times three. Ibis Velez [facility] Apr 30, 2017 14:46
[2017-04-30] MEDS ORDERED: POLYETHYLENE GLYCOL 17 GM PKG PO ONE (15:15)
--- NOTE | 2017-04-30 17:59 | EKG ---
Date Performed: 04/30/2017 Time Performed: 10:16:02 PTAGE: 52 years EKG: SINUS BRADYCARDIA BORDERLINE ECG Compared to prior tracing no significant change PREVIOUS TRACING : 09/16/2015 21.35 DOCTOR: Audi Espinoza Interpretating Date/Time 04/30/2017 17:59:04
[2017-04-30] MEDS: ZIPRASIDONE HCL 20 MG CAP PO SCH (20:35)
[2017-04-30] MEDS: traZODone HCL 50 MG TAB PO SCH (20:35)
[2017-04-30] MEDS: ACYCLOVIR 200 MG CAP PO SCH (20:35)
[2017-04-30] MEDS: ACETAMINOPHEN 325 MG TAB PO PRN (20:36)
[2017-04-30] MEDS: SODIUM CHLORIDE 0.9% FLUSH 10 ML FLUSH IV FLUSH SCH (20:37)
[2017-05-01 03:49] VITALS: BP 123/82; PULSE 57; RESP 17; TEMP 98.6; O2SAT 100
[2017-05-01 08:16] VITALS: BP 108/71; PULSE 59; RESP 20; TEMP 98.3; O2SAT 100
[2017-05-01] MEDS: ZIPRASIDONE HCL 20 MG CAP PO SCH ×2 (08:27→20:53)
[2017-05-01] MEDS: SODIUM CHLOR 0.9% 1000 ML INJ 1,000 ML IV SCH ×3 (08:27→22:23)
[2017-05-01] MEDS: ACYCLOVIR 200 MG CAP PO SCH ×2 (08:27→20:54)
[2017-05-01] MEDS: PANTOPRAZOLE SOD 20 MG DELAYED RELEASE TAB PO SCH (08:27)
[2017-05-01] MEDS: SODIUM CHLORIDE 0.9% FLUSH 10 ML FLUSH IV FLUSH SCH ×2 (08:27→20:56)
--- NOTE | 2017-05-01 08:55 | HHI.PR ---
Subjective Remarks Follow up for abdominal pain. The patient reports continued constant throbbing epigastric pain with radiation throughout the entire abdomen. Denies any fevers/ chills or nausea/vomiting. He has not had a BM since Sunday. He was able to tolerate some clear liquids last night for dinner. Denies any worsening abdominal pain after eating. Admits to recent Tylenol use, but no NSAIDs. Objective Vitals Vital Signs Date Time Temp Pulse Resp B/P (MAP) Pulse Ox O2 Delivery O2 Flow Rate FiO2 05/01/17 08:16 98.3 59 20 108/71 (83) 100 05/01/17 03:49 98.6 57 17 123/82 (96) 100 04/30/17 23:26 98.6 51 17 120/78 (92) 98 04/30/17 19:41 98.9 55 17 117/69 (85) 98 04/30/17 15:45 97.3 57 18 133/78 (96) 100 04/30/17 15:29 48 18 142/76 (98) 98 04/30/17 12:50 46 16 149/85 (106) 100 Room Air 04/30/17 12:49 18 04/30/17 09:59 98.3 18 100 Room Air 04/30/17 09:57 53 18 136/78 (97) 99 Room Air 04/30/17 09:27 97.8 89 15 139/80 (99) 96 I/O 04/30/17 04/30/17 04/30/17 05/01/17 05/01/17 05/01/17 07:00 15:00 23:00 07:00 15:00 23:00 Intake Total 1000 ml 50 ml Output Total 1 ml Balance 1000 ml 49 ml Intake Oral 50 ml IV Total 1000 ml Output Urine Total 1 ml # Voids 1 1 Result Diagram: 04/30/1755 04/30/1755 Imaging Last Impressions Abdomen/Pelvis CT 04/30/1742 Signed Impressions: Service Date/Time: Sunday, April 30, 2017 10:30 - CONCLUSION: 1. Focal 10 cm loop of slightly prominent air-filled proximal jejunum at the junction of the duodenum. This finding is nonspecific and likely reflects transient aperistalsis in this segment of bowel. Enteritis or developing ileus are felt to be unlikely although cannot be entirely excluded. 2. Normal appendix. Austin Victoria MD Objective Remarks GENERAL: Well-nourished, well-developed middle aged male patient in NAD. SKIN: Warm and dry. No rash. HEENT: Normocephalic. Atraumatic. Pupils equal and round. Mucous membranes pink and moist. CARDIOVASCULAR: Regular rate and rhythm. S1, S2 noted. No murmur appreciated. RESPIRATORY: No accessory muscle use. Clear to auscultation. Breath sounds equal bilaterally. GASTROINTESTINAL: Abdomen soft, non-tender, nondistended. Normoactive bowel sounds x4. MUSCULOSKELETAL: No obvious deformities. Extremities without clubbing, cyanosis , or edema. NEUROLOGICAL: Awake and alert. No obvious cranial nerve deficits. Motor grossly within normal limits. Normal speech. Medications and IVs Current Medications Medications (Trade) Dose Ordered Sig/Trevor Route Start Time Stop Time Status Last Admin Sodium Chloride 1,000 ml @ 100 mls/hr Q10H IV 04/30/17 12:00 05/01/17 08:27 (NS Flush) 2 ml UNSCH PRN IV FLUSH 04/30/17 12:00 (NS Flush) 2 ml BID IV FLUSH 04/30/17 21:00 05/01/17 08:27 (Zofran Inj) 4 mg Q6H PRN IVP 04/30/17 12:00 (Narcan Inj) 0.4 mg UNSCH PRN IV PUSH 04/30/17 12:00 (Zovirax) 400 mg BID PO 04/30/17 21:00 05/01/17 08:27 (Protonix) 20 mg DAILY PO 05/01/17 09:00 05/01/17 08:27 (Desyrel) 50 mg HS PO 04/30/17 21:00 04/30/17 20:35 (Geodon) 20 mg BID PO 04/30/17 21:00 05/01/17 08:27 (Flu (Quadrivalent) Vaccine Inj) 0.5 ml ONCE ONCE IM 05/01/17 10:00 05/01/17 10:01 (Tylenol) 650 mg Q4H PRN PO 04/30/17 18:45 04/30/17 20:36 A/P Assessment and Plan 52-year-old male with a history of depression, bipolar disorder, GERD who presents with a one-week history of constant sharp epigastric abdominal pain, Abdominal Pain/Nausea: CT abdomen images reviewed, shows focal 10cm loop of slightly prominent air-filled proximal jejunum at the junction of the duodenum. Possible small bowel obstruction vs peristalsis of the duodenum. Renal function , LFTs appear acceptable. Lactate 1.1. UDS positive for cannabinoids, possibly contributing to symptoms. -Continue supportive treatment with IVF, antiemetics prn -Continue PPI -Consult gastroenterology -Clear liquid diet, NPO after midnight -Plan for EGD today Left-sided chest pressure: 3 day history of this. This is likely referred from abdominal pain. Patient had low risk myocardial perfusion scan in September 2015. -Troponin 1, EKG ordered. Given time course, with troponin negative, this is unlikely cardiac in nature. Right sided groin pain. -No indication of hernia. Possible hip pain. Normal appendix on CT. No gee right lower quadrant tenderness to palpation. Depression/Bipolar. -Continue home medications. Marijuana use. -Cessation counseling provided. DVT Prophylaxis: SCDs. Discharge Planning Discharge pending EGD today. Maureen Heredia PA-C May 01, 2017 8:55 am
[2017-05-01] MEDS ORDERED: INFLUENZA VIRUS VACCINE (QUADRIVALENT) 0.5 ML SYR IM ONE (10:00)
--- NOTE | 2017-05-01 10:44 | HHI.GIFU ---
Subjective Remarks EGD with biopsy showed irregular Z line consistent with barretts. This was biopsied. Also moderate gastritis biopsied. No ulcers no cancer. Objective Vitals I&O Vital Signs Date Time Temp Pulse Resp B/P (MAP) Pulse Ox O2 Delivery O2 Flow Rate FiO2 05/01/17 08:16 98.3 59 20 108/71 (83) 100 05/01/17 03:49 98.6 57 17 123/82 (96) 100 04/30/17 23:26 98.6 51 17 120/78 (92) 98 04/30/17 19:41 98.9 55 17 117/69 (85) 98 04/30/17 15:45 97.3 57 18 133/78 (96) 100 04/30/17 15:29 48 18 142/76 (98) 98 04/30/17 12:50 46 16 149/85 (106) 100 Room Air 04/30/17 12:49 18 I/O 04/30/17 04/30/17 04/30/17 05/01/17 05/01/17 05/01/17 07:00 15:00 23:00 07:00 15:00 23:00 Intake Total 1000 ml 50 ml Output Total 1 ml Balance 1000 ml 49 ml Intake Oral 50 ml IV Total 1000 ml Output Urine Total 1 ml # Voids 1 1 Physical Exam HEENT: Pupils round and reactive to light; normocephalic; atraumatic; no jaundice. Throat is clear. NECK: Neck is supple, no JVD, no lymphadenopathy. CHEST: Chest is clear to auscultation and percussion. CARDIAC: Regular rate and rhythm with no murmur gallop or rubs. ABDOMEN: Soft, nondistended, nontender; no hepatosplenomegaly; bowel sounds are present in all four quadrants. EXTREMITIES: No clubbing, cyanosis, or edema. SKIN: Normal; no rash; no jaundice. 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 Assessment and Plan Plan Imp: GERD, rule out BArretts. Gastritis. Rec: Await biopsy result. Regular diet PPI Followup in office if tolerating food. Piotr Zhang MD May 01, 2017 10:44
[2017-05-01 11:29] VITALS: PULSE 53; RESP 15; TEMP 97.7; O2SAT 99
[2017-05-01] MEDS ORDERED: LIDOCAINE HCL 1% PF 5 ML AMPULE OTHER ONE (12:00)
[2017-05-01] MEDS ORDERED: PROPOFOL 200 MG/20 ML AMP IV ONE (12:00)
[2017-05-01 15:09] VITALS: BP 107/74; PULSE 61; RESP 24; TEMP 98.1; O2SAT 98
[2017-05-01 16:13] LABS: AUTOMATED NEUTROPHIL # 5.9 TH/MM3 (1.8-7.7); BASOPHIL % 0.4 % (0.0-2.0); EOSINOPHIL % 0.4 % (0.0-4.0); HEMO FLAGS DIFF FINAL; LYMPH % 20.3 % (9.0-44.0); LYMPHOCYTE # 1.7 TH/MM3 (1.0-4.8); MEAN CELL VOLUME 87.2 FL (80.0-100.0); MEAN CORPUSCULAR HEMOGLOBIN 29.6 PG (27.0-34.0); MEAN CORPUSCULAR HGB CONC 33.9 % (32.0-36.0); MONO % 7.5 % (0.0-8.0); NEUT % 71.4 % (16.0-70.0); PLATELET COUNT 208 TH/MM3 (150-450); RED BLOOD COUNT 5.05 MIL/MM3 (4.50-5.90); RED CELL DISTRIBUTION WIDTH 14.5 % (11.6-17.2); WHITE BLOOD COUNT 8.2 TH/MM3 (4.0-11.0)
[2017-05-01 16:33] LABS: ANION GAP 5 MEQ/L (5-15); AST (GOT) 14 U/L (15-37); BICARBONATE 26.7 MEQ/L (21.0-32.0); BLOOD UREA NITROGEN 9 MG/DL (7-18); CHLORIDE 107 MEQ/L (98-107); GLOMERULAR FILTRATION RATE 80 ML/MIN (>89); POTASSIUM 3.7 MEQ/L (3.5-5.1); SODIUM (NA) 139 MEQ/L (136-145)
[2017-05-01 16:38] LABS: ALKALINE PHOSPHATASE 65 U/L (45-117); ALT (GPT) 20 U/L (12-78); TOTAL BILIRUBIN ADULT 0.3 MG/DL (0.2-1.0)
[2017-05-01] MEDS: ACETAMINOPHEN 325 MG TAB PO PRN (18:58)
[2017-05-01 19:48] VITALS: BP 149/91; PULSE 56; RESP 18; TEMP 98.3; O2SAT 100
[2017-05-01] MEDS: traZODone HCL 50 MG TAB PO SCH (20:53)
[2017-05-01] MEDS ORDERED: ACETAMINOPHEN/HYDROcodone 325 MG/5 MG TAB PO ONE (21:15)
[2017-05-01] MEDS ORDERED: SIMETHICONE 80 MG CHEWABLE TAB CHEW ONE (21:15)
[2017-05-01 23:17] VITALS: BP 98/65; PULSE 70; RESP 18; TEMP 98; O2SAT 95
[2017-05-02 03:54] VITALS: BP 98/68; PULSE 61; RESP 18; TEMP 97.8; O2SAT 96
[2017-05-02 07:32] VITALS: BP 119/73; PULSE 60; RESP 16; TEMP 97.6; O2SAT 98
[2017-05-02] MEDS ORDERED: SUCRALFATE 1 GM TAB PO SCH (08:30)
[2017-05-02] MEDS: SODIUM CHLORIDE 0.9% FLUSH 10 ML FLUSH IV FLUSH SCH ×2 (09:38→21:00)
[2017-05-02] MEDS: ZIPRASIDONE HCL 20 MG CAP PO SCH ×2 (09:38→22:07)
[2017-05-02] MEDS: PANTOPRAZOLE SOD 20 MG DELAYED RELEASE TAB PO SCH (09:38)
[2017-05-02] MEDS: ACYCLOVIR 200 MG CAP PO SCH ×2 (09:38→22:08)
[2017-05-02] MEDS ORDERED: ERYTHROMYCIN ETHYLSUCCINATE 400 MG TAB PO SCH (09:45)
--- NOTE | 2017-05-02 09:56 | HHI.PR ---
Subjective Remarks Follow-up for abdominal pain. The patient continues to complain of lower abdominal pain, worse on the right. He has been tolerating some oral intake with no vomiting. He states that his stools have been quite hard, last BM yesterday. He reports his urine output has been decreased to 2-3 times a day recently, reports he's been trying to stay well hydrated. He states the pain is 7/10 in severity, unchanged since admission. Had mild relief from [place] last night. Objective Vitals Vital Signs Date Time Temp Pulse Resp B/P (MAP) Pulse Ox O2 Delivery O2 Flow Rate FiO2 05/02/17 07:32 97.6 60 16 119/73 (88) 98 05/02/17 03:54 97.8 61 18 98/68 (78) 96 05/01/17 23:17 98.0 70 18 98/65 (76) 95 05/01/17 22:14 20 05/01/17 19:58 20 05/01/17 19:48 98.3 56 18 149/91 (110) 100 05/01/17 15:09 98.1 61 24 107/74 (85) 98 05/01/17 11:29 97.7 53 15 99 05/01/17 10:50 51 16 105/68 (80) 96 I/O 05/01/17 05/01/17 05/01/17 05/02/17 05/02/17 05/02/17 07:00 15:00 23:00 07:00 15:00 23:00 Intake Total 50 ml 250 ml Output Total 1 ml Balance 49 ml 250 ml Intake Oral 50 ml Other 250 ml Output Urine Total 1 ml # Voids 1 1 Result Diagram: 05/01/17 1552 05/01/17 1552 Imaging Last Impressions Abdomen/Pelvis CT 04/30/17 0942 Signed Impressions: Service Date/Time: Sunday, April 30, 2017 10:30 - CONCLUSION: 1. Focal 10 cm loop of slightly prominent air-filled proximal jejunum at the junction of the duodenum. This finding is nonspecific and likely reflects transient aperistalsis in this segment of bowel. Enteritis or developing ileus are felt to be unlikely although cannot be entirely excluded. 2. Normal appendix. Austin Victoria MD Objective Remarks GENERAL: Well-developed well-nourished. In no acute distress. SKIN: Warm and dry. No lesions noted. HEENT: Normocephalic. Pupils equal and round. Mucous membranes pink and moist. CARDIOVASCULAR: Regular rate and rhythm. No murmur appreciated. RESPIRATORY: No accessory muscle use. Clear to auscultation. Breath sounds equal bilaterally. GASTROINTESTINAL: Abdomen soft, non-tender, nondistended. Bowel sounds x4. MUSCULOSKELETAL: No obvious deformities. No clubbing or cyanosis. No edema. NEUROLOGICAL: Awake and alert. No focal neurological deficits. Moves upper and lower extremities spontaneously. Normal speech. PSYCHIATRIC: Appropriate mood and affect; insight and judgment normal. A/P Assessment and Plan 52-year-old male with a history of depression, bipolar disorder, GERD who presents with a one-week history of constant sharp epigastric abdominal pain, Abdominal Pain: Unclear etiology; possibly some obstruction or bowel dysmotility , gastritis, constipation, ect Reviewed: CT abdomen shows focal 10cm loop of slightly prominent air-filled proximal jejunum at the junction of the duodenum. Possible small bowel obstruction vs peristalsis of the duodenum. Renal function, LFTs appear acceptable. Lipase within normal limits. EGD showed gastritis and irregular Z line consistent with Gray's esophagus. UDS positive for cannabinoids, possibly contributing to symptoms. -Continue supportive treatment, antiemetics prn -Continue PPI -Consulted gastroenterology performed EGD -Diet per GI -Continued symptoms today in the right lower quadrant, check KUB -D/W GI, recommend MiraLAX hourly x5 doses Left-sided chest pressure: None currently. Suspect referred from abdominal pain. Patient had low risk myocardial perfusion scan in September 2015. -Troponin negative, EKG with slight bradycardia, no ischemic changes. Depression/Bipolar. -Continue home medications. Marijuana use. -Encouraged cessation DVT Prophylaxis: SCDs. Discharge Planning Follow-up KUB and GI recommendations. Monitor for clinical improvement. Jim Haines May 02, 2017 09:56
[2017-05-02] MEDS: ACETAMINOPHEN 325 MG TAB PO PRN (09:59)
--- NOTE | 2017-05-02 10:18 | HHI.GIFU ---
Subjective Remarks Pt continues to have lower abdominal pain. The pain is sharp, bilateral lower quadrant, moderate in severity. No fever, no vomiting. Pain started a few days ago after a large BM. No bloody stools. EGD yesterday showed gastritis and GERD. I have spoken with the ED physician and I have reviewed personally the images of his CT scan. It does not show any diverticulosis or diverticulitis. One loop of distended small bowel is probably transient. I think symptoms may be caused by constipation. Will give flush out with 10 doses of miralax over 5 hours. Treat with PPI waiting for pathology on stomach and esophagus. Objective Vitals I&O Vital Signs Date Time Temp Pulse Resp B/P (MAP) Pulse Ox O2 Delivery O2 Flow Rate FiO2 05/02/17 07:32 97.6 60 16 119/73 (88) 98 05/02/17 03:54 97.8 61 18 98/68 (78) 96 05/01/17 23:17 98.0 70 18 98/65 (76) 95 05/01/17 22:14 20 05/01/17 19:58 20 05/01/17 19:48 98.3 56 18 149/91 (110) 100 05/01/17 15:09 98.1 61 24 107/74 (85) 98 05/01/17 11:29 97.7 53 15 99 05/01/17 10:50 51 16 105/68 (80) 96 I/O 05/01/17 05/01/17 05/01/17 05/02/17 05/02/17 05/02/17 07:00 15:00 23:00 07:00 15:00 23:00 Intake Total 50 ml 250 ml 1000 ml Output Total 1 ml Balance 49 ml 250 ml 1000 ml Intake Oral 50 ml IV Total 1000 ml Other 250 ml Output Urine Total 1 ml # Voids 1 1 Laboratory Laboratory Tests Test 05/01/17 15:52 White Blood Count 8.2 Red Blood Count 5.05 Hemoglobin 14.9 Hematocrit 44.0 Mean Corpuscular Volume 87.2 Mean Corpuscular Hemoglobin 29.6 Mean Corpuscular Hemoglobin Concent 33.9 Red Cell Distribution Width 14.5 Platelet Count 208 Mean Platelet Volume 8.3 Neutrophils (%) (Auto) 71.4 Lymphocytes (%) (Auto) 20.3 Monocytes (%) (Auto) 7.5 Eosinophils (%) (Auto) 0.4 Basophils (%) (Auto) 0.4 Neutrophils # (Auto) 5.9 Lymphocytes # (Auto) 1.7 Monocytes # (Auto) 0.6 Eosinophils # (Auto) 0.0 Basophils # (Auto) 0.0 CBC Comment DIFF FINAL Differential Comment Blood Urea Nitrogen 9 Creatinine 1.16 Random Glucose 105 Total Protein 7.0 Albumin 3.2 Calcium Level 8.8 Alkaline Phosphatase 65 Aspartate Amino Transf (AST/SGOT) 14 Alanine Aminotransferase (ALT/SGPT) 20 Total Bilirubin 0.3 Sodium Level 139 Potassium Level 3.7 Chloride Level 107 Carbon Dioxide Level 26.7 Anion Gap 5 Estimat Glomerular Filtration Rate 80 Physical Exam HEENT: Pupils round and reactive to light; normocephalic; atraumatic; no jaundice. Throat is clear. NECK: Neck is supple, no JVD, no lymphadenopathy. CHEST: Chest is clear to auscultation and percussion. CARDIAC: Regular rate and rhythm with no murmur gallop or rubs. ABDOMEN: Tender lower abdomen, no guarding or rebound tenderness. No mass. EXTREMITIES: No clubbing, cyanosis, or edema. SKIN: Normal; no rash; no jaundice. BUS GREASER: No focal deficits; alert and oriented times three. Assessment and Plan Plan Imp: GERD, rule out BArretts. Gastritis. Lower abdominal pain probably related to constipation Rec: Await biopsy result. Regular diet PPI Flush out colon with 10 doses of miralax over 5 hours. Piotr Zhang MD May 02, 2017 10:18
--- NOTE | 2017-05-02 10:40 | RADRPT ---
EXAM DATE/TIME: 05/02/2017 10:17 [facility] COMPARISON: CT ABDOMEN & PELVIS W/O CONTRAST, April 30, 2017, 10:30. INDICATIONS : Lower abdominal pain for 1 week. MEDICAL HISTORY : Cardiovascular disease. SURGICAL HISTORY : None. ENCOUNTER: Initial ACUITY: 1 week PAIN SCORE: 7/10 LOCATION: Abdomen, lower quadrant. FINDINGS: Supine view of the abdomen was performed. The abdominal bowel gas pattern is normal. No abnormal ma sses, calcifications, or organomegaly is seen. The osseous structures are unremarkable. CONCLUSION: Benign-appearing abdomen. No perceptible recurrent or residual small bowel distention. Ismael Maldonado MD on May 02, 2017 at 10:37 Board Certified Radiologist. This report was verified electronically.
[2017-05-02 11:39] VITALS: BP 111/77; PULSE 68; RESP 16; TEMP 98.2; O2SAT 97
[2017-05-02] MEDS: POLYETHYLENE GLYCOL 17 GM PKG PO SCH ×5 (13:51→18:34)
[2017-05-02] MEDS ORDERED: SODIUM CHLOR 0.9% 1000 ML INJ 1,000 ML IV SCH (14:45)
[2017-05-02 16:28] VITALS: BP 112/81; PULSE 82; RESP 16; TEMP 98.2; O2SAT 95
[2017-05-02] MEDS: ACETAMINOPHEN 1000 MG/100 ML 100 ML IV PRN (16:34)
[2017-05-02 20:26] VITALS: BP 116/73; PULSE 56; RESP 20; TEMP 98.8; O2SAT 98
[2017-05-02] MEDS: PANTOPRAZOLE SOD 40 MG DELAYED RELEASE TAB PO SCH (22:07)
[2017-05-02] MEDS: traZODone HCL 50 MG TAB PO SCH (22:07)
[2017-05-02 23:57] VITALS: BP 99/69; PULSE 64; RESP 18; TEMP 97.7; O2SAT 97
[2017-05-03 03:35] VITALS: BP 116/73; PULSE 59; RESP 17; TEMP 98.5; O2SAT 100
[2017-05-03 07:55] VITALS: BP 108/78; PULSE 73; RESP 16; TEMP 97.9; O2SAT 100
--- NOTE | 2017-05-03 08:18 | HHI.PR ---
Subjective Remarks Follow-up for abdominal pain. The patient continues to complain of generalized abdominal pain, unchanged. He states he having pain in both the upper and the lower abdomen, feels that the lower abdomen is worse. He had good bowel movements after receiving MiraLAX doses yesterday. He has been tolerating oral intake. Objective Vitals Vital Signs Date Time Temp Pulse Resp B/P (MAP) Pulse Ox O2 Delivery O2 Flow Rate FiO2 05/03/17 07:55 97.9 73 16 108/78 (88) 100 05/03/17 03:35 98.5 59 17 116/73 (87) 100 05/02/17 23:57 97.7 64 18 99/69 (79) 97 05/02/17 20:26 98.8 56 20 116/73 (87) 98 05/02/17 16:28 98.2 82 16 112/81 (91) 95 05/02/17 11:39 98.2 68 16 111/77 (88) 97 I/O 05/02/17 05/02/17 05/02/17 05/03/17 05/03/17 05/03/17 07:00 15:00 23:00 07:00 15:00 23:00 Intake Total 1000 ml 820 ml Balance 1000 ml 820 ml Intake Oral 720 ml IV Total 1000 ml 100 ml Result Diagram: 05/01/17 1552 05/01/17 1552 Imaging Last Impressions Abdomen X-Ray 05/02/17 0000 Signed Impressions: Service Date/Time: Tuesday, May 02, 2017 10:17 - CONCLUSION: Benign-appearing abdomen. No perceptible recurrent or residual small bowel distention. Ismael Maldonado MD Abdomen/Pelvis CT 04/30/17 0942 Signed Impressions: Service Date/Time: Sunday, April 30, 2017 10:30 - CONCLUSION: 1. Focal 10 cm loop of slightly prominent air-filled proximal jejunum at the junction of the duodenum. This finding is nonspecific and likely reflects transient aperistalsis in this segment of bowel. Enteritis or developing ileus are felt to be unlikely although cannot be entirely excluded. 2. Normal appendix. Austin Victoria MD Objective Remarks GENERAL: Well-developed well-nourished. In no acute distress. Sitting up on the side of the bed playing on his phone SKIN: Warm and dry. No lesions noted. HEENT: Normocephalic. Pupils equal and round. Mucous membranes pink and moist. CARDIOVASCULAR: Regular rate and rhythm. No murmur appreciated. RESPIRATORY: No accessory muscle use. Clear to auscultation. Breath sounds equal bilaterally. GASTROINTESTINAL: Abdomen soft, non-tender, nondistended. Bowel sounds x4. MUSCULOSKELETAL: No obvious deformities. No clubbing or cyanosis. No edema. NEUROLOGICAL: Awake and alert. No focal neurological deficits. Moves upper and lower extremities spontaneously. Normal speech. PSYCHIATRIC: Appropriate mood and affect; insight and judgment normal. A/P Assessment and Plan 52-year-old male with a history of depression, bipolar disorder, GERD who presents with a one-week history of constant sharp epigastric abdominal pain, Abdominal Pain: Unclear etiology; possibly some obstruction or bowel dysmotility , gastritis, constipation, ect Reviewed: CT abdomen shows focal 10cm loop of slightly prominent air-filled proximal jejunum at the junction of the duodenum. Possible small bowel obstruction vs peristalsis of the duodenum. Renal function, LFTs appear acceptable. Lipase within normal limits. EGD showed gastritis and irregular Z line consistent with Gray's esophagus. UDS positive for cannabinoids, possibly contributing to symptoms. KUB 05/06 with benign-appearing abdomen. -Continue supportive treatment, antiemetics prn -Continue PPI twice daily -Consulted gastroenterology, performed EGD which showed gastritis -Regular diet per GI -D/W GI, Dr. Zhang, suspect symptoms secondary to constipation, recommended MiraLAX hourly x5 doses and if not improved will consider small bowel series -Patient reports good BMs after MiraLAX but pain persists, check small bowel series Left-sided chest pressure: None currently. Suspect referred from abdominal pain. Patient had low risk myocardial perfusion scan in September 2015. -Troponin negative, EKG with slight bradycardia, no ischemic changes. Depression/Bipolar. -Continue home medications. Marijuana use. -Encouraged cessation DVT Prophylaxis: SCDs. Discharge Planning If small bowel series is unremarkable and symptoms persist will follow up with GI, but likely plan on discharge later today if scan is negative. Jim Haines May 03, 2017 08:18
[2017-05-03 11:24] VITALS: BP 121/83; PULSE 71; RESP 16; TEMP 98; O2SAT 98
[2017-05-03] MEDS: PANTOPRAZOLE SOD 40 MG DELAYED RELEASE TAB PO SCH (12:02)
[2017-05-03] MEDS: ZIPRASIDONE HCL 20 MG CAP PO SCH (12:02)
[2017-05-03] MEDS: ACYCLOVIR 200 MG CAP PO SCH (12:03)
[2017-05-03] MEDS: SODIUM CHLORIDE 0.9% FLUSH 10 ML FLUSH IV FLUSH SCH (12:04)
[2017-05-03] MEDS: ACETAMINOPHEN 1000 MG/100 ML 100 ML IV PRN (14:45)
[2017-05-03 16:11] VITALS: BP 121/75; PULSE 68; RESP 18; TEMP 96.1; O2SAT 99
--- NOTE | 2017-05-03 16:25 | HHI.GIFU ---
Subjective Remarks Pt resting in bed. Still with abd pain. + BM after miralax regimen. Went for SBFT today. (Ibis Velez) Objective Vitals I&O Vital Signs Date Time Temp Pulse Resp B/P (MAP) Pulse Ox O2 Delivery O2 Flow Rate FiO2 05/03/17 16:11 96.1 68 18 121/75 (90) 99 05/03/17 11:24 98.0 71 16 121/83 (96) 98 05/03/17 07:55 97.9 73 16 108/78 (88) 100 05/03/17 03:35 98.5 59 17 116/73 (87) 100 05/02/17 23:57 97.7 64 18 99/69 (79) 97 05/02/17 20:26 98.8 56 20 116/73 (87) 98 05/02/17 16:28 98.2 82 16 112/81 (91) 95 I/O 05/02/17 05/02/17 05/02/17 05/03/17 05/03/17 05/03/17 07:00 15:00 23:00 07:00 15:00 23:00 Intake Total 1000 ml 820 ml Balance 1000 ml 820 ml Intake Oral 720 ml IV Total 1000 ml 100 ml Imaging Last Impressions Abdomen X-Ray 05/02/17 0000 Signed Impressions: Service Date/Time: Tuesday, May 02, 2017 10:17 - CONCLUSION: Benign-appearing abdomen. No perceptible recurrent or residual small bowel distention. Ismael Maldonado MD Abdomen/Pelvis CT 04/30/17 0942 Signed Impressions: Service Date/Time: Sunday, April 30, 2017 10:30 - CONCLUSION: 1. Focal 10 cm loop of slightly prominent air-filled proximal jejunum at the junction of the duodenum. This finding is nonspecific and likely reflects transient aperistalsis in this segment of bowel. Enteritis or developing ileus are felt to be unlikely although cannot be entirely excluded. 2. Normal appendix. Austin Victoria MD Physical Exam HEENT: PERRL; normocephalic; atraumatic; no jaundice. CHEST: CTA CARDIAC: RRR ABDOMEN: diffuse TTP, BS +, abd soft nondistended EXTREMITIES: No clubbing, cyanosis, or edema. SKIN: Normal; no rash; no jaundice. BOXCAR WEIGHER: No focal deficits; alert and oriented times three. (Ibis Velez) Assessment and Plan Plan ASSESSMENT - abd pain - s/p EGD found irr z line c/w barretts, gastritis. path indicates Gray's. s/p trial miralax, + BM pt still with abd pain. KUB unremarkable. SBFT report pending PLAN - await SBFT - DELISA - continue PPI - if pain persists could consider colonoscopy as outpatient - f/u with GI as outpatient This pt seen by myself and Dr Kwok and this note is written on his behalf (Ibis Velez) Plan Agree with the above note, the small bowel follow-through was normal, follow up as an outpatient (Guadalupe Kwok MD) Ibis Velez May 03, 2017 16:25 Guadalupe Kwok MD May 03, 2017 18:00
--- NOTE | 2017-05-03 16:30 | RADRPT ---
EXAM DATE/TIME: 05/03/2017 12:37 [facility] COMPARISON: No previous studies available for comparison. INDICATIONS : Abdominal pain and nausea for 10 days. FLUORO TIME: 0 minutes IMAGE COUNT: 8 CONTRAST: [facility] IMAGING TIME(S): 15 min, 30 min, 45 min MEDICAL HISTORY : Cardiovascular disease. SURGICAL HISTORY : None. ENCOUNTER: Subsequent ACUITY: 1 week PAIN SCORE: 6/10 LOCATION: Abdomen. FINDINGS: Water-soluble contrast was used for the examination. Contrast is seen in the mid small bowel by 45 m inutes. Contrast is present in the right colon by one hour. No dilated loops of small bowel. Mucos al pattern of the jejunum is normal. There is insufficient contrast detail on this water-soluble exa m to assess for abnormalities in the ileal mucosa, but no gross abnormality seen. CONCLUSION: Normal water soluble contrast small bowel series. No evidence of obstruction. Edward Welsh MD on May 03, 2017 at 16:27 Board Certified Radiologist. This report was verified electronically.
[2017-05-03] MEDS ORDERED: PANT40TA3 PO (16:37)
[2017-05-03] MEDS ORDERED: PERI8.6T PO (16:37)
[2017-05-03] MEDS ORDERED: NORC5TAB PO (16:37)
--- NOTE | 2017-05-03 16:41 | HHI.DS ---
Discharge Summary Admission Date Apr 30, 2017 at 11:54 Discharge Date: May 03, 2017 Admitting Diagnosis abdominal pain NOS (1) Constipation ICD Code: K59.00 - Constipation, unspecified Diagnosis: Secondary Status: Acute (2) Abdominal pain ICD Code: R10.9 - Unspecified abdominal pain Diagnosis: Principal Status: Acute (3) Gastritis ICD Code: K29.70 - Gastritis, unspecified, without bleeding Diagnosis: Secondary Status: Acute (4) Gray esophagus ICD Code: K22.70 - Gray's esophagus without dysplasia Diagnosis: Secondary Status: Acute Procedures EGD 05/01/17 Brief History - From Admission 52-year-old male with a history of depression, bipolar disorder, GERD who presents with a one-week history of constant sharp epigastric abdominal pain, together with sharp constant right groin pain. He also reports a three-day history of left lower chest tightness, which is not changed with exertion. He also reports nausea for the past 3 days without vomiting. Reports decreased appetite over the past few days. He does report chills over the past few days, however no measured fevers. Denies any diarrhea. He does report chronic constipation, although says he is not constipated at this time. CBC/BMP: 05/01/17 1552 05/01/17 1552 Significant Findings Laboratory Tests Test 05/01/17 15:52 Neutrophils (%) (Auto) 71.4 % (16.0-70.0) Albumin 3.2 GM/DL (3.4-5.0) Aspartate Amino Transf (AST/SGOT) 14 U/L (15-37) Estimat Glomerular Filtration Rate 80 ML/MIN (>89) PE at Discharge GENERAL: Well-developed well-nourished. In no acute distress. Sitting up on the side of the bed playing on his phone SKIN: Warm and dry. No lesions noted. HEENT: Normocephalic. Pupils equal and round. Mucous membranes pink and moist. CARDIOVASCULAR: Regular rate and rhythm. No murmur appreciated. RESPIRATORY: No accessory muscle use. Clear to auscultation. Breath sounds equal bilaterally. GASTROINTESTINAL: Abdomen soft, non-tender, nondistended. Bowel sounds x4. MUSCULOSKELETAL: No obvious deformities. No clubbing or cyanosis. No edema. NEUROLOGICAL: Awake and alert. No focal neurological deficits. Moves upper and lower extremities spontaneously. Normal speech. PSYCHIATRIC: Appropriate mood and affect; insight and judgment normal. Pt update on day of discharge Small bowel series shows no obstruction. GI recommends outpatient colonoscopy. Plan of care with recommendation for outpatient follow-up discussed with the patient, who is happy to be discharged today to go watch football. Hospital Course 52-year-old male with a history of depression, bipolar disorder, GERD who presents with a one-week history of constant sharp epigastric abdominal pain, Abdominal Pain: Unclear etiology; possibly some obstruction or bowel dysmotility , gastritis, constipation, ect Reviewed: CT abdomen shows focal 10cm loop of slightly prominent air-filled proximal jejunum at the junction of the duodenum. Possible small bowel obstruction vs peristalsis of the duodenum. Renal function, LFTs appear acceptable. Lipase within normal limits. EGD showed gastritis and irregular Z line consistent with Gray's esophagus. UDS positive for cannabinoids, possibly contributing to symptoms. KUB 05/06 with benign-appearing abdomen. -Continue supportive treatment, antiemetics prn -Continue PPI twice daily -Consulted gastroenterology, performed EGD which showed gastritis -Regular diet per GI -D/W GI, Dr. Zhang, suspect symptoms secondary to constipation, recommended MiraLAX hourly x5 doses and if not improved will consider small bowel series -Patient reports good BMs after MiraLAX but pain persists, small bowel series with no evidence of obstruction -GI recommends outpatient colonoscopy -Lengby as needed for pain Pt Condition on Discharge: Stable Discharge Disposition: Discharge Home Discharge Time: > 30 minutes Discharge Instructions DIET: Follow Instructions for: Heart Healthy Diet Activities you can perform: Regular-No Restrictions Follow up Referrals: Gastroenterology - 2 Weeks @ [facility] PCP Follow-up - 1 Week [facility] New Medications: Hydrocodone-Acetaminophen (Lengby) 5-325 mg Tab 1 TAB PO Q6H PRN for PAIN, #12 TAB 0 Refills Sennosides-Docusate Sodium (Anu-Colace) 8.6-50 Mg Tab 1 TAB PO BID for Constipation, #30 TAB 0 Refills Pantoprazole (Pantoprazole) 40 Mg Tab 40 MG PO BID for Reflux, #60 TAB Continued Medications: Acyclovir (Acyclovir) 400 Mg Tab 400 MG PO BID for Mgmt Viral Infection, TAB 0 Refills Sertraline (Sertraline) 25 Mg Tab 25 MG PO DAILY, #30 TAB 0 Refills Trazodone (Trazodone) 50 Mg Tab 50 MG PO HS for Control Depression, #30 TAB 0 Refills Ziprasidone (Ziprasidone) 20 Mg Cap 20 MG PO BID, #60 CAP 0 Refills Discontinued Medications: Pantoprazole (Protonix) 20 Mg Tab 20 MG PO DAILY for Reflux, #30 TAB 0 Refills Jim Haines May 03, 2017 16:41
== END 2017-05-03 17:37 | disposition home or self-care (01) ==
LOC: NEPE 09:25 → NEDA 11:54 → NEPGCP 15:28
PROVIDERS: ADMIT Hospitalist; ATTEND Hospitalist
DX: K29.70 Gastritis, unspecified, without bleeding (principal); K59.00 Constipation, unspecified; K22.70 Barrett's esophagus without dysplasia; K21.9 Gastro-esophageal reflux disease without esophagitis; F31.9 Bipolar disorder, unspecified; E78.00 Pure hypercholesterolemia, unspecified; R07.89 Other chest pain; Z71.51 Drug abuse counseling and surveillance of drug abuser; F12.10 Cannabis abuse, uncomplicated; Z23 Encounter for immunization
CPT/HCPCS: 43239; 74000; 74176; 74250; 80053; 80307; 81001; 83605; 83690; 84484; 85025; 88305; 88312; 93005; 96361; 96374; 96375; 96376; 99285; G0378; J0131; J2270; J2405; J7030; Q2038; Q9963; 90686

== ENCOUNTER 2017-11-04 07:32 | Emergency (ER) | payer OTHER ==
[~2017-11-04] VITALS: Ht 180.3 cm; Wt 95.5 kg
[~2017-11-04 07:32] MED LIST changes: +ACYC400T PO; -AMOX500C PO; -MIRA33504 PO; +NORC5TAB PO; -PANT20 PO; +PANT40TA3 PO; +PERI8.6T PO; +SERT25TA83 PO; +TRAZ50TA12 PO; +ZIPR20CA13 PO
[2017-11-04 07:38] VITALS: BP 133/85; PULSE 66; RESP 18; TEMP 97.4; O2SAT 99
--- NOTE | 2017-11-04 07:54 | PD ---
HPI Chief Complaint: Back/ Neck Pain or Injury Time Seen by Provider: 07:44 Travel History International Travel<30 days: No Contact w/Intl Traveler<30days: No Traveled to known affect area: No History of Present Illness HPI 52-year-old -Spanish male presents emergency department status post slip and fall at home yesterday. Patient states he was playing with his grandchildren, when he slipped on something wet on the floor, and his "feet went out from under him" and he landed flat on his back. Patient is now complaining of lower thoracic and lumbar back pain and spasm. Pain is 9 out of 10. It is worse with movement. Patient denies numbness, tingling, or radicular pain in the lower extremities. He denies hitting his head, neck pain , headache, nausea, vomiting, or other symptoms. He denies urinary symptoms. He has no known drug allergies. PFSH Past Medical History Arthritis: Yes (BACK) Blood Disorders: No Bipolar Disorder: Yes Anxiety: No Depression: No Heart Rhythm Problems: No Cancer: No Cardiovascular Problems: Yes High Cholesterol: Yes Chest Pain: Yes Congestive Heart Failure: No Diminished Hearing: No Endocrine: No GERD: Yes Genitourinary: No Heparin Induced Thrombocytopen: No Hypertension: No Immune Disorder: No Musculoskeletal: No Neurologic: No Psychiatric: No Respiratory: No Immunizations Current: Yes Past Surgical History Other Surgery: Yes (LAMINECTOMY L4/L5 1996) Social History Alcohol Use: No Tobacco Use: No Substance Use: Yes (marijuana 04/25/17) Allergies-Medications (Allergen,Severity, Reaction): Coded Allergies: No Known Allergies (Verified , 04/30/17) Reported Meds & Prescriptions Reported Meds & Active Scripts Active Glencross (Hydrocodone-Acetaminophen) 5-325 mg Tab 1 Tab PO Q6H PRN Anu-Colace (Sennosides-Docusate Sodium) 8.6-50 Mg Tab 1 Tab PO BID Pantoprazole (Pantoprazole Sodium) 40 Mg Tab 40 Mg PO BID Reported Acyclovir 400 Mg Tab 400 Mg PO BID Ziprasidone 20 Mg Cap 20 Mg PO BID Trazodone (Trazodone HCl) 50 Mg Tab 50 Mg PO HS Sertraline (Sertraline HCl) 25 Mg Tab 25 Mg PO DAILY Review of Systems Except as stated in HPI: all other systems reviewed are Neg General / Constitutional: No: Fever Eyes: No: Visual changes HENT: No: Headaches Cardiovascular: No: Chest Pain or Discomfort Respiratory: No: Shortness of Breath Gastrointestinal: No: Abdominal Pain Genitourinary: No: Dysuria Musculoskeletal: Positive: Myalgias, Arthralgias, Limited ROM, Pain Skin: No Rash Neurologic: No: Weakness Psychiatric: No: Depression Endocrine: No: Polydipsia Hematologic/Lymphatic: No: Easy Bruising Physical Exam Narrative GENERAL: Patient appears in moderate distress. He is walking guardedly. He has a cane. SKIN: Warm and dry. Normal color. Normal turgor. No bruising. No abrasions. No open wounds. HEAD: Atraumatic. Normocephalic. Nontender. EYES: Pupils equal and round. No scleral icterus. No injection or drainage. ENT: No nasal bleeding or discharge. Mucous membranes pink and moist. Pharynx is clear. Airways patent. NECK: Trachea midline. No bony tenderness or step-off. Range of motion is full and supple. CARDIOVASCULAR: Regular rate and rhythm. RESPIRATORY: No accessory muscle use. Clear to auscultation. Breath sounds equal bilaterally. GASTROINTESTINAL: Abdomen soft, non-tender, nondistended. Hepatic and splenic margins not palpable. MUSCULOSKELETAL: Extremities without clubbing, cyanosis, or edema. No obvious deformities. Patient is generalized soft tissue tenderness to the back from the mid and lower thoracic into the lumbar region into the buttocks bilaterally. There ispoint tenderness on the spine, no appreciable step-off. Straight leg raise pain is negligible. There is no weakness in the lower extremities. Deep tendon reflexes are 2+ and equal bilaterally. NEUROLOGICAL: Awake and alert. No obvious cranial nerve deficits. Motor grossly within normal limits. Five out of 5 muscle strength in the arms and legs. Normal speech. PSYCHIATRIC: Appropriate mood and affect; insight and judgment normal. Data Data Last Documented VS Vital Signs Date Time Temp Pulse Resp B/P (MAP) Pulse Ox O2 Delivery O2 Flow Rate FiO2 11/04/17 07:38 97.4 66 18 133/85 (101) 99 Orders Orders Ketorolac Inj (Toradol Inj) (11/04/17 08:00) Orphenadrine Inj (Norflex Inj) (11/04/17 08:00) MDM Medical Decision Making Medical Screen Exam Complete: Yes Emergency Medical Condition: Yes Differential Diagnosis Mechanical slip and fall. Back sprain. Muscle spasm. Contusion. Narrative Course Based on my history and physical I do not feel radiographic imaging is warranted. Patient is given Toradol 60 mg IM as well as 60 mg Norflex IM. Patient is monitored for 45 minutes and reassessed. Patient is able to ambulate with less pain. Patient will be continued on ibuprofen 800 mg 3 times daily with food #60. Patient also given Flexeril 10 mg up to 3 times daily for muscle spasm #15 Patient is given tramadol 50 mg every 6 hours as needed pain #20. Patient should use heat, gentle stretching, and frequent movement. Patient to follow-up with his primary care physician at the [facility] or return here if worsening symptoms develop. Diagnosis Primary Impression: Muscle strain Additional Impression: Contusion Qualified Codes: S30.0XXA - Contusion of lower back and pelvis, initial encounter Patient Instructions: Acute Low Back Pain (ED), General Instructions, Lower Back Exercises (ED) Additional Instructions: Patient will be continued on ibuprofen 800 mg 3 times daily with food #60. Patient also given Flexeril 10 mg up to 3 times daily for muscle spasm #15 Patient is given tramadol 50 mg every 6 hours as needed pain #20. Patient should use heat, gentle stretching, and frequent movement. Patient to follow-up with his primary care physician at the [facility] or return here if worsening symptoms develop. Scripts Tramadol (Tramadol) 50 Mg Tab 50 MG PO Q6H Y for PAIN, #20 TAB 0 Refills Prov: Nura Granados MD 11/04/17 Cyclobenzaprine (Flexeril) 10 Mg Tab 10 MG PO TID for Muscle Spasm, #15 TAB 0 Refills Prov: Nura Granados MD 11/04/17 Ibuprofen (Ibuprofen) 800 Mg Tab 800 MG PO Q8H Y for Pain/Inflammation, #60 TAB 0 Refills Prov: Nura Granados MD 11/04/17 Disposition: 01 DISCHARGE HOME Condition: Stable Jung Rosario Nov 04, 2017 07:54
[2017-11-04] MEDS ORDERED: KETOROLAC TROMETHAMINE 60 MG/2 ML (IM) VIAL IM ONE (08:00)
[2017-11-04] MEDS ORDERED: ORPHENADRINE INJ 60 MG/2 ML AMP IM ONE (08:00)
[2017-11-04] MEDS ORDERED: CYCL10TA PO (08:32)
[2017-11-04] MEDS ORDERED: IBUP1TAB7 PO (08:32)
[2017-11-04] MEDS ORDERED: TRAM50TA PO (08:32)
== END 2017-11-04 08:52 | disposition home or self-care (01) ==
LOC: NEPD 07:32
DX: S39.012A Strain of muscle, fascia and tendon of lower back, initial encounter (principal); S30.0XXA Contusion of lower back and pelvis, initial encounter; W01.0XXA Fall on same level from slipping, tripping and stumbling without subsequent striking against object, initial encounter; Y93.89 Activity, other specified; E78.00 Pure hypercholesterolemia, unspecified; F31.9 Bipolar disorder, unspecified; Z79.899 Other long term (current) drug therapy
CPT/HCPCS: 96372; 99283; J1885; J2360